=== PATIENT | male | born 1995 | race African-American/Black ===

== ENCOUNTER 2017-10-05 22:16 | Outpatient (CLI) | payer OTHER | END 2017-10-05 22:26 | disposition short-term general hospital (02) | LOC: AMB 22:16 | DX: R40.20 Unspecified coma (principal); F10.129 Alcohol abuse with intoxication, unspecified | CPT/HCPCS: A0425; A0429 ==

== ENCOUNTER 2017-10-05 22:43 | Emergency (ER) | payer OTHER ==
[~2017-10-05] VITALS: Ht 170.2 cm; Wt 99.8 kg
[2017-10-05 23:55] LABS: PLATELET COUNT 232 K/uL (142-355)
[2017-10-06 00:10] LABS: POTASSIUM 3.3 mmol/L (3.6-5.2)
[2017-10-06 03:08] VITALS: TEMP 98.4
[2017-10-06 04:48] VITALS: BP 111/62
== END 2017-10-06 04:50 | disposition home or self-care (01) ==
LOC: ED 22:43
DX: F14.129 Cocaine abuse with intoxication, unspecified (principal)
CPT/HCPCS: 36415; 80053; 80307; 80320; 81000; 85027; 96360; 99284